=== PATIENT | female | born 1955 | race Caucasian/White ===

== ENCOUNTER 2016-10-21 12:32 | Inpatient (IN) | payer OTHER ==
[~2016-10-21] VITALS: Ht 162.6 cm; Wt 48.0 kg
[~2016-10-21 12:32] MED LIST: ASPIR-LOW81 MG PO; ATORVASTATIN CA80 MG PO; Aspirin E.C. PO; CLOPIDOGREL75 MG PO; CYMBALTA20 MG PO; DULOXETINE HCL20 MG PO; ELAVIL25 MG PO; ENDOCET 7.5-321 EACH PO; Fish Oil PO; LISINOPRIL2.5 MG PO; METOPROLOL SUCC25 MG PO; NICODERM CQ1 EAC2 TD; PERCOCET 7.51 TABLET PO; PRAVASTATIN SOD20 MG PO; VENTOLIN HFA18 GM IH
[2016-10-21 13:20] LABS: EOSINOPHIL (%) 0.4 % (0-5); HEMATOCRIT 46.1 % (36.0-46.0); IMMATURE GRANULOCYTE (%) 0.4 % (0.0-0.7); LYMPHOCYTE COUNT 0.8 K/uL (1.0-2.8); MCH 29.2 PG (29.0-34.0); MCHC 33.6 G/DL (30.0-36.0); MEAN PLAT.VOLUME 10.4 uM^3 (9.5-12.4); MONOCYTE (%) 7.2 % (3-12); MONOCYTE COUNT 0.5 K/uL (0-0.8); NEUTROPHIL (%) 81.1 % (45-76); PLATELET COUNT 212 K/uL (156-360); RBC DIS.WIDTH-CV 12.5 % (11.8-14.6); RBC DIS.WIDTH-SD 39.8 % (39-53); WHITE BLOOD COUNT 7.3 K/uL (4.1-10.2)
[2016-10-21 13:28] LABS: CHLORIDE 97 mEq/L (99-109); POTASSIUM 4.4 mEq/L (3.7-5.4); SODIUM 139 mEq/L (136-147)
[2016-10-21 13:30] LABS: GLUCOSE 105 mg/dL (70-99)
[2016-10-21 13:31] LABS: ANION GAP 10 MEQ/L (2-14)
[2016-10-21 13:34] LABS: GFR ESTIMATE (CALCULATED) > 59 mL/min/
[2016-10-21 13:35] LABS: UREA NITROGEN (BUN) 16 mg/dL (9-23)
[2016-10-21] MEDS ORDERED: LO-DOSE ASPIRIN81 M2 PO (14:14)
[2016-10-21] MEDS ORDERED: PERCOCET 10/1 TABLET PO (14:15)
[2016-10-21] MEDS ORDERED: ONDANSETRON HCL4 MG PO (14:17)
[2016-10-21] MEDS ORDERED: CYMBALTA20 MG PO (14:18)
[2016-10-21 16:56] VITALS: BP 121/73
[2016-10-21 17:31] LABS: ADD MIUA? YES; BILIRUBIN NEGATIVE; BLOOD NEGATIVE; COLOR YELLOW ((YELLOW)); GLUCOSE (STRIP) NEGATIVE; KETONES 5; LEUKOCYTES NEGATIVE; NITRITE NEGATIVE; PROTEIN (STRIP) 30; SPECIFIC GRAVITY 1.025 (1.000-1.030); UROBILINOGEN 0.2 MG/DL (0.2-1.0)
[2016-10-21 17:50] LABS: BACTERIA NONE SEEN /HPF; EPITHELIAL CELLS 1+ /HPF; MUCUS 1+ /LPF; RED BLOOD CELLS 15-20 /HPF (0-5); UCUL ADDED? NO; WHITE BLOOD CELLS 0-5 /HPF (0-5)
[2016-10-21 19:29] VITALS: BP 111/63
[2016-10-22] VITALS (7 sets, daily range): BP systolic 107–156; BP diastolic 62–80
[2016-10-22 07:08] LABS: HEMATOCRIT 42.3 % (36.0-46.0); MCH 29.4 PG (29.0-34.0); MCHC 33.8 G/DL (30.0-36.0); MEAN PLAT.VOLUME 10.6 uM^3 (9.5-12.4); PLATELET COUNT 228 K/uL (156-360); RBC DIS.WIDTH-CV 12.7 % (11.8-14.6); RBC DIS.WIDTH-SD 40.1 % (39-53); RED BLOOD COUNT 4.86 M/uL (3.80-5.20); WHITE BLOOD COUNT 7.3 K/uL (4.1-10.2)
[2016-10-22 07:29] LABS: ANION GAP 4 MEQ/L (2-14); CHLORIDE 97 MEQ/L (99-109); GFR ESTIMATE (CALCULATED) > 59 mL/min/; GLUCOSE 129 mg/dL (70-99); POTASSIUM 4.9 MEQ/L (3.7-5.4); SAMPLE HEMOLYSIS CHECK 0; SAMPLE ICTERIC CHECK 0; SAMPLE LIPEMIA CHECK 0; SODIUM 139 MEQ/L (136-147); UREA NITROGEN (BUN) 16 mg/dL (9-23)
[2016-10-23 04:09] VITALS: BP 119/58
[2016-10-23 08:05] VITALS: BP 124/83
[2016-10-23 11:36] VITALS: BP 108/64
[2016-10-23 16:40] VITALS: BP 135/78
[2016-10-23 20:03] VITALS: BP 119/67
[2016-10-24 00:31] VITALS: BP 126/75
[2016-10-24 07:49] VITALS: BP 125/69
[2016-10-24 15:19] VITALS: BP 132/78
[2016-10-24] MEDS ORDERED: PREDNISONE10 MG PO (15:21)
[2016-10-24] MEDS ORDERED: NICOTINE PATCH1 EAC2 TD (15:21)
[2016-10-24] MEDS ORDERED: ADVAIR HFA120 INHAL1 IH (15:21)
[2016-10-24] MEDS ORDERED: SPIRIVA RESPIMAT4 GM IH (15:21)
[2016-10-24] MEDS ORDERED: LEVAQUIN500 MG PO (15:21)
== END 2016-10-24 17:28 | disposition home or self-care (01) | DRG 190 ==
LOC: EME 12:32 → EDOF 14:34 → 5SOUTH 14:34
PROVIDERS: Emergency Medicine; Physician Assistant
DX: J44.0 Chronic obstructive pulmonary disease with (acute) lower respiratory infection (principal); J96.01 Acute respiratory failure with hypoxia; F33.9 Major depressive disorder, recurrent, unspecified; Z68.1 Body mass index [BMI] 19.9 or less, adult; J20.9 Acute bronchitis, unspecified; G89.4 Chronic pain syndrome; I25.10 Atherosclerotic heart disease of native coronary artery without angina pectoris; I25.2 Old myocardial infarction; J92.9 Pleural plaque without asbestos; R63.4 Abnormal weight loss; K21.9 Gastro-esophageal reflux disease without esophagitis; I10 Essential (primary) hypertension; Z77.090 Contact with and (suspected) exposure to asbestos; Z86.73 Personal history of transient ischemic attack (TIA), and cerebral infarction without residual deficits; Z99.81 Dependence on supplemental oxygen; Z98.61 Coronary angioplasty status; Z82.49 Family history of ischemic heart disease and other diseases of the circulatory system
CPT/HCPCS: 71010; 71260; 80048; 81003; 85025; 85027; 87070; 87205; 93005; 94640; 94640 76; 94799; 99202; 99281; 99284; G0008; J1650; J2920; J2930; J7644

== ENCOUNTER 2017-09-22 13:52 | Emergency (ER) | payer OTHER ==
[~2017-09-22] VITALS: Ht 160 cm; Wt 51.7 kg
[~2017-09-22 13:52] MED LIST changes: +ADVAIR HFA120 INHAL1 IH; +LEVAQUIN500 MG PO; +LO-DOSE ASPIRIN81 M2 PO; +NICOTINE PATCH1 EAC2 TD; +ONDANSETRON HCL4 MG PO; +PERCOCET 10/1 TABLET PO; +PREDNISONE10 MG PO; +SPIRIVA RESPIMAT4 GM IH
[2017-09-22 14:26] LABS: HEMATOCRIT 49.3 % (36.0-46.0); HEMOGLOBIN 17.3 G/DL (11.9-15.5); MCH 30.8 PG (29.0-34.0); MCHC 35.1 G/DL (30.0-36.0); MCV 87.7 FL (83-99); PLATELET COUNT 286 K/uL (156-360); RBC DIS.WIDTH-CV 12.5 % (11.8-14.6); RBC DIS.WIDTH-SD 40.5 % (39-53); RED BLOOD COUNT 5.62 M/uL (3.80-5.20); WHITE BLOOD COUNT 11.6 K/uL (4.1-10.2)
[2017-09-22 14:37] LABS: ALBUMIN 4.4 g/dL (3.2-4.8); CHLORIDE 103 mEq/L (99-109); POTASSIUM 4.2 mEq/L (3.7-5.4); SODIUM 143 mEq/L (136-147)
[2017-09-22 14:40] LABS: GLUCOSE 106 mg/dL (70-99); TOTAL PROTEIN 7.5 g/dL (6.4-8.3)
[2017-09-22 14:42] LABS: TOTAL BILIRUBIN 0.8 mg/dL (0.0-1.0)
[2017-09-22 14:43] LABS: ALKALINE PHOSPHATASE 122 IU/L (3-129); CREATININE 0.8 mg/dL (0.6-1.3); GFR ESTIMATE (CALCULATED) > 59 mL/min/
[2017-09-22 14:44] LABS: UREA NITROGEN (BUN) 13 mg/dL (9-23)
[2017-09-22 14:45] LABS: AST (GOT) 23 IU/L (2-34)
[2017-09-22 14:46] LABS: ALT (GPT) 28 IU/L (3-49)
[2017-09-22 14:46] LABS: APPEARANCE CLOUDY ((CLEAR)); BILIRUBIN NEGATIVE; BLOOD NEGATIVE; COLOR YELLOW ((YELLOW)); GLUCOSE (STRIP) NEGATIVE; KETONES NEGATIVE; LEUKOCYTES TRACE; NITRITE NEGATIVE; PROTEIN (STRIP) 30; SPECIFIC GRAVITY 1.019 (1.000-1.030); UROBILINOGEN 0.2 MG/DL (0.2-1.0)
[2017-09-22 14:47] LABS: LIPASE 29 U/L (1.0-51.0)
[2017-09-22 15:04] LABS: BACTERIA NONE SEEN /HPF; EPITHELIAL CELLS 1+ /HPF; MUCUS TRACE /LPF; RED BLOOD CELLS 0-5 /HPF (0-5); UCUL ADDED? YES
[2017-09-22] MEDS ORDERED: ZOFRAN ODT4 MG PO (16:51)
[2017-09-22] MEDS ORDERED: CIPRO500 MG PO (16:51)
[2017-09-22] MEDS ORDERED: FLAGYL500 MG PO (16:51)
[2017-09-22 17:00] VITALS: BP 130/83
== END 2017-09-22 17:55 | disposition home or self-care (01) ==
LOC: EME 13:52
DX: K52.9 Noninfective gastroenteritis and colitis, unspecified (principal); K21.9 Gastro-esophageal reflux disease without esophagitis; I25.10 Atherosclerotic heart disease of native coronary artery without angina pectoris; F41.9 Anxiety disorder, unspecified; F17.200 Nicotine dependence, unspecified, uncomplicated; Z79.82 Long term (current) use of aspirin; Z79.891 Long term (current) use of opiate analgesic; Z95.5 Presence of coronary angioplasty implant and graft; Z88.8 Allergy status to other drugs, medicaments and biological substances
CPT/HCPCS: 74177; 80053; 81003; 83690; 85027; 87086; 99281; 99284; J3010; J7030

== ENCOUNTER 2018-01-17 13:05 | Emergency (ER) | payer OTHER ==
[~2018-01-17] VITALS: Ht 160 cm; Wt 48.8 kg
[~2018-01-17 13:05] MED LIST changes: +CIPRO500 MG PO; +FLAGYL500 MG PO; +ZOFRAN ODT4 MG PO
[2018-01-17] MEDS ORDERED: XANAX0.5 MG PO (16:14)
[2018-01-17 17:44] VITALS: BP 108/69
== END 2018-01-17 17:45 | disposition home or self-care (01) ==
LOC: EME 13:05
DX: F41.9 Anxiety disorder, unspecified (principal); F32.9 Major depressive disorder, single episode, unspecified; J44.9 Chronic obstructive pulmonary disease, unspecified; K21.9 Gastro-esophageal reflux disease without esophagitis; I25.10 Atherosclerotic heart disease of native coronary artery without angina pectoris; Z95.5 Presence of coronary angioplasty implant and graft; F17.200 Nicotine dependence, unspecified, uncomplicated; Z79.82 Long term (current) use of aspirin; Z88.8 Allergy status to other drugs, medicaments and biological substances
CPT/HCPCS: 90839; 99281; 99284

== ENCOUNTER 2018-04-05 14:50 | Inpatient (IN) | payer OTHER ==
[~2018-04-05] VITALS: Ht 160 cm; Wt 44.9 kg
[~2018-04-05 14:50] MED LIST changes: +XANAX0.5 MG PO
[2018-04-05 16:16] LABS: CARBOXY HGB 6.9 % (0-5); METHEMOGLOBIN 1.3 % (0-1.5); PCO2 66 mm Hg (35-45); PO2 78 mm Hg (80-100); pH 7.35 (7.35-7.45)
[2018-04-05 16:17] LABS: BASE EXCESS 7.5 mEq/L (-3 to +3); BICARBONATE 36.4 mEq/L (22-26); COMMENTS - BLOOD GASES A+C+; DEVICE NC; O2 FLOW 4 L/MIN; SITE LR; TOTAL RESP RATE 16 resp/min
[2018-04-05 16:31] LABS: BASOPHIL (%) 0.4 % (0-1); EOSINOPHIL (%) 1.9 % (0-5); EOSINOPHIL COUNT 0.1 K/uL (0-0.3); HEMATOCRIT 52.8 % (36.0-46.0); HEMOGLOBIN 17.3 G/DL (11.9-15.5); IMMATURE GRANULOCYTE (%) 0.9 % (0.0-0.7); LYMPHOCYTE (%) 9.6 % (15-42); LYMPHOCYTE COUNT 0.7 K/uL (1.0-2.8); MCH 29.4 PG (29.0-34.0); MCHC 32.8 G/DL (30.0-36.0); MCV 89.6 FL (83-99); MONOCYTE (%) 7.3 % (3-12); MONOCYTE COUNT 0.6 K/uL (0-0.8); NEUTROPHIL (%) 79.9 % (45-76); PLATELET COUNT 230 K/uL (156-360); RBC DIS.WIDTH-CV 12.5 % (11.8-14.6); RBC DIS.WIDTH-SD 41.1 % (39-53); RED BLOOD COUNT 5.89 M/uL (3.80-5.20); WHITE BLOOD COUNT 7.5 K/uL (4.1-10.2)
[2018-04-05 16:36] LABS: CHLORIDE 101 mEq/L (99-109); POTASSIUM 4.5 mEq/L (3.7-5.4); SODIUM 141 mEq/L (136-147)
[2018-04-05 16:37] LABS: GLUCOSE 110 mg/dL (70-99)
[2018-04-05 16:41] LABS: CREATININE 0.7 mg/dL (0.6-1.3); GFR ESTIMATE (CALCULATED) > 59 mL/min/
[2018-04-05 16:42] LABS: UREA NITROGEN (BUN) 9 mg/dL (9-23)
[2018-04-05 16:47] LABS: TROP-I INTERPRETATION NEGATIVE; TROPONIN-I 0.02 ng/mL (0.0-0.30)
[2018-04-05] MEDS ORDERED: ALBUTEROL2.5 MG/3 M IH (18:39)
[2018-04-05] MEDS ORDERED: ATARAX10 MG PO (18:39)
[2018-04-05] MEDS ORDERED: BREO ELLIPTA 21 EACH IH (18:40)
[2018-04-05] MEDS ORDERED: LIDOCAINE HCL35 GM TP (18:40)
[2018-04-05] MEDS ORDERED: PRAVASTATIN SOD20 MG PO (18:40)
[2018-04-05] MEDS ORDERED: Pain Cream TP (18:43)
[2018-04-05 21:46] VITALS: BP 112/66
[2018-04-06] VITALS (7 sets, daily range): BP systolic 91–130; BP diastolic 53–86
[2018-04-06 05:54] LABS: HEMATOCRIT 52.1 % (36.0-46.0); HEMOGLOBIN 16.5 G/DL (11.9-15.5); MCH 28.6 PG (29.0-34.0); MCHC 31.7 G/DL (30.0-36.0); MCV 90.3 FL (83-99); PLATELET COUNT 220 K/uL (156-360); RBC DIS.WIDTH-CV 12.2 % (11.8-14.6); RBC DIS.WIDTH-SD 40.3 % (39-53); RED BLOOD COUNT 5.77 M/uL (3.80-5.20)
[2018-04-06 06:18] LABS: CHLORIDE 101 MEQ/L (99-109); CREATININE 0.6 MG/DL (0.6-1.3); GFR ESTIMATE (CALCULATED) > 59 mL/min/; GLUCOSE 143 mg/dL (70-99); POTASSIUM 5.2 MEQ/L (3.7-5.4); SODIUM 144 MEQ/L (136-147); UREA NITROGEN (BUN) 14 mg/dL (9-23)
[2018-04-07] VITALS (7 sets, daily range): BP systolic 103–1085; BP diastolic 53–91
[2018-04-08 04:02] VITALS: BP 115/67
[2018-04-08 07:47] VITALS: BP 124/64
[2018-04-08 15:26] VITALS: BP 116/70
[2018-04-08 23:06] VITALS: BP 107/59
[2018-04-09 07:58] VITALS: BP 117/67
[2018-04-09] MEDS ORDERED: PROZAC20 MG PO (10:26)
[2018-04-09] MEDS ORDERED: PREDNISONE20 MG PO (10:29)
== END 2018-04-09 13:05 | disposition home or self-care (01) | DRG 202 ==
LOC: EME 14:50 → EDOF 20:27 → 5SOUTH 20:27 → ENRESERV 20:33 → 5SOUTH 21:09
PROVIDERS: Emergency Medicine; Hospitalist
DX: J20.9 Acute bronchitis, unspecified (principal); J96.01 Acute respiratory failure with hypoxia; J43.9 Emphysema, unspecified; I10 Essential (primary) hypertension; I25.10 Atherosclerotic heart disease of native coronary artery without angina pectoris; K21.9 Gastro-esophageal reflux disease without esophagitis; G89.4 Chronic pain syndrome; F41.8 Other specified anxiety disorders; I25.2 Old myocardial infarction; F17.200 Nicotine dependence, unspecified, uncomplicated; Z71.6 Tobacco abuse counseling; Z86.73 Personal history of transient ischemic attack (TIA), and cerebral infarction without residual deficits; Z91.19 Patient's noncompliance with other medical treatment and regimen; Z77.090 Contact with and (suspected) exposure to asbestos; Z95.5 Presence of coronary angioplasty implant and graft; Z79.82 Long term (current) use of aspirin
CPT/HCPCS: 36600; 71046; 71275; 80048; 83880; 84484; 85025; 85027; 85379; 93005; 94640; 94799; 99281; 99285; J1644; J2930; J7512